=== PATIENT | female | born 1980 | race Caucasian/White ===

== ENCOUNTER 2016-10-10 01:06 | Emergency (ER) | payer BC ==
[~2016-10-10] VITALS: Ht 162.6 cm; Wt 65.9 kg
[~2016-10-10 01:06] MED LIST: AMOXICILLIN 8751 TAB PO; OMNICEF 300MG300 MG PO; ZOFRAN ODT8 MG PO
[2016-10-10 04:32] VITALS: BP 113/70
== END 2016-10-10 04:32 | disposition home or self-care (01) ==
LOC: ED 01:06
DX: R45.851 Suicidal ideations (principal); F32.9 Major depressive disorder, single episode, unspecified; T43.226A Underdosing of selective serotonin reuptake inhibitors, initial encounter; T43.296A Underdosing of other antidepressants, initial encounter; Z91.128 Patient's intentional underdosing of medication regimen for other reason

== ENCOUNTER 2024-05-07 09:03 | Outpatient (RCR) | payer MEDICARE, BC | END 2024-05-28 | disposition home or self-care (01) | LOC: OT | DX: G54.0 Brachial plexus disorders (principal) ==